=== PATIENT | female | born 1950 | race Caucasian/White ===

== ENCOUNTER 2017-09-10 12:13 | Emergency (ER) | payer MEDICARE, BC ==
[2017-09-10 12:15] VITALS: BP 119/52
[2017-09-10] MEDS ORDERED: Albuterol/Ipratropium 3.0-0.5 MG/3 ML Neb Soln NEB ONE (12:29)
[2017-09-10] MEDS ORDERED: Codeine/guaiFENesin 100-10 MG/5 ML Syrup 5 ML Cup PO ONE (12:30)
[2017-09-10] MEDS ORDERED: Ondansetron 4 MG Tab.DIS PO ONE (12:31)
--- NOTE | 2017-09-10 12:35 | EDM.PDOC ---
ED HPI GENERAL MEDICAL PROBLEM - General Chief Complaint: Respiratory Problem Stated Complaint: Cough, Wheezing Time Seen by Provider: 09/10/17 12:15 Source of Information: Reports: Patient History Limitations: Reports: No Limitations - History of Present Illness INITIAL COMMENTS - FREE TEXT/NARRATIVE: Patient complaining of increased coughing and wheezing since starting to develop "cold" symptoms yesterday. Has history of asthma/COPD (non-smoker) and has Symbicort and Ventolin inhalers at home. These are not helping her. She has a nebulizer machine at home as well as old albuterol neb solution that has . She did not try the medication. Complains of headache, mild sore throat, cough, runny nose, mild loose stools. Episode of post-tussive emesis this morning. No fevers/chills. No other complaints. - Related Data Allergies Allergy/AdvReac Type Severity Reaction Status Date / Time No Known Allergies Allergy Verified 09/10/17 12:15 Home Meds: Home Meds FLUoxetine HCl [Fluoxetine HCl] 40 mg PO DAILY 06/19/15 [History] Propranolol HCl [Propranolol] 60 mg PO DAILY 06/19/15 [History] QUEtiapine [SEROquel] 200 mg PO DAILY 06/19/15 [History] Albuterol Sulfate 2.5 mg IH ASDIRECTED PRN #1 box 09/10/17 [Rx] Albuterol [IJD: Ventolin HFA] 1 puff INH BID 09/10/17 [History] Budesonide/Formoterol Fumarate [Symbicort 80-4.5 Mcg Inhaler] 1 puff INH BID [History] Pantoprazole Sodium 40 mg PO DAILY 09/10/17 [History] Prednisone [IJD: predniSONE] 40 mg PO DAILY #5 tab 09/10/17 [Rx] traMADol [Ultram] 50 mg PO Q6H PRN #20 tablet 09/10/17 [Rx] Past Medical History - Past Health History Medical/Surgical History: Denies Medical/Surgical History Cardiovascular History: Reports: High Cholesterol, Hypertension Respiratory History: Reports: Asthma Gastrointestinal History: Reports: GERD Neurological History: Reports: TIA Psychiatric History: Reports: Anxiety, Depression Social & Family History - Tobacco Use Smoking Status *Q: Former Smoker Used Tobacco, but Quit: Yes Month Tobacco Last Used: 1989 Second Hand Smoke Exposure: No - Caffeine Use Caffeine Use: Reports: Coffee - Alcohol Use Days Per Week of Alcohol Use: 0 - Recreational Drug Use Recreational Drug Use: No ED ROS GENERAL - Review of Systems Review Of Systems: ROS reveals no pertinent complaints other than HPI. ED EXAM, GENERAL - Physical Exam Exam: See Below Exam Limited By: No Limitations General Appearance: Alert, WD/WN, No Apparent Distress Eye Exam: Bilateral Eye: EOMI, PERRL Ears: Normal External Exam, Normal Canal, Hearing Grossly Normal, Normal TMs Nose: Normal Inspection Throat/Mouth: Normal Inspection, Normal Lips, Normal Teeth, Normal Gums, Normal Oropharynx, Normal Voice, No Airway Compromise Head: Atraumatic, Normocephalic Neck: Normal Inspection, Supple, Non-Tender, Full Range of Motion. No: Lymphadenopathy (L), Lymphadenopathy (R) Respiratory/Chest: No Respiratory Distress, No Accessory Muscle Use, Wheezing ( scattered). No: Crackles, Rales, Rhonchi, Stridor Cardiovascular: Normal Peripheral Pulses, Regular Rate, Rhythm, No Murmur Peripheral Pulses: 2+: Radial (L), Radial (R) GI/Abdominal: Normal Bowel Sounds, Soft, Non-Tender, No Distention (Female) Exam: Deferred Rectal (Female) Exam: Deferred Back Exam: Normal Inspection. No: CVA Tenderness (L), CVA Tenderness (R), Muscle Spasm, Paraspinal Tenderness, Vertebral Tenderness Extremities: Normal Inspection, Normal Range of Motion, Non-Tender, Normal Capillary Refill Neurological: Alert, Oriented, CN II-XII Intact, Normal Cognition, Normal Gait, No Motor/Sensory Deficits Psychiatric: Normal Affect, Normal Mood Skin Exam: Warm, Dry, Intact, Normal Color, No Rash Lymphatic: No Adenopathy Course - Vital Signs Last Recorded V/S: Last Vital Signs Temp 37.2 C 09/10/17 12:14 Pulse 72 09/10/17 12:14 Resp 18 09/10/17 12:14 BP 119/52 L 09/10/17 12:14 Pulse Ox 95 09/10/17 12:14 - Orders/Labs/Meds Orders: Active Orders 24 hr Category Date Time Status RT Aerosol Therapy [RC] ASDIRECTED Care 09/10/17 12:29 Ordered Meds: Medications Discontinued Medications Generic Name Dose Route Start Last Admin Trade Name Freq PRN Reason Stop Dose Admin Albuterol/Ipratropium 3 ml 09/10/17 12:29 09/10/17 12:32 Duoneb 3.0-0.5 Mg/3 Ml NEB 09/10/17 12:30 3 ml ONETIME ONE Administration Guaifenesin/Codeine Phosphate 10 ml 09/10/17 12:30 Robitussin Ac PO 09/10/17 12:31 ONETIME ONE Ondansetron HCl 4 mg 09/10/17 12:31 Zofran Odt PO 09/10/17 12:32 ONETIME ONE - Re-Assessments/Exams Free Text/Narrative Re-Assessment/Exam: 09/10/17 12:38 Suspect acute viral infection with asthma exacerbation. Patient received neb as well as PO cough medication/nausea medication. Plan at this time is to refill her Albuterol nebulizer solution as well as place her on short course of steroids. She is to follow up as needed if symptoms worsen. Departure - Departure Time of Disposition: 13:00 Disposition: Home, Self-Care 01 Condition: Good Clinical Impression: Acute asthma, Viral illness - Discharge Information Prescriptions: Albuterol Sulfate 2.5 mg IH ASDIRECTED PRN #1 box PRN Reason: Shortness Of Breath Prednisone [IJD: predniSONE] 40 mg PO DAILY #5 tab traMADol [Ultram] 50 mg PO Q6H PRN #20 tablet PRN Reason: Pain Referrals: Catrachita Herman NP [Primary Care Provider] - Forms: ED Department Discharge Additional Instructions: Use albuterol in nebulizer instead of Ventolin inhaler for the next 5-7 days. Use one neb every 4-6 hours as needed for cough/shortness of breath. Recommend using the nebs 4 times a day minimum over the next 5 days to help with your symptoms. Use Prednisone today and the next 4 days. Continue Symbicort inhaler. Use Tramadol as needed for pain. OK to take Tylenol with the Tramadol. Follow up as needed if you have worsening symptoms/problems. - My Orders Last 24 Hours: My Active Orders 09/10/17 12:29 RT Aerosol Therapy [RC] ASDIRECTED - Assessment/Plan Last 24 Hours: My Active Orders 09/10/17 12:29 RT Aerosol Therapy [RC] ASDIRECTED
[2017-09-10] MEDS ORDERED: traMADol 50 MG Tab PO ONE (12:41)
== END 2017-09-10 12:55 | disposition home or self-care (01) ==
LOC: LL.ED 12:13
DX: J45.901 Unspecified asthma with (acute) exacerbation (principal); B34.9 Viral infection, unspecified; I10 Essential (primary) hypertension; E78.00 Pure hypercholesterolemia, unspecified; Z87.891 Personal history of nicotine dependence; F32.9 Major depressive disorder, single episode, unspecified
CPT/HCPCS: 94640; 99284; A9270

== ENCOUNTER 2019-04-19 11:47 | Day surgery (SDC) | payer MEDICARE, BC ==
[~2019-04-19 11:47] MED LIST: Propofol 200 MG/20 ML SDV ONE
[2019-04-19] MEDS ORDERED: Lactated Ringers 1,000 ML IV SCH (12:00)
[2019-04-19] MEDS ORDERED: Sodium Chloride 0.9% 10 ML Syringe FLUSH PRN (12:00)
--- NOTE | 2019-04-19 12:24 | PCM.HPR ---
H & P Addendum review - H & P Addendum Review Date of Original H & P: 03/30/19 Date Reviewed: 04/19/19 Time Reviewed: 12:23 Patient was Examined: No Changes
[2019-04-19] MEDS ORDERED: Propofol 200 MG/20 ML SDV ONE (12:26)
--- NOTE | 2019-04-19 12:50 | PCM.OPNOTE ---
- General Post-Op/Procedure Note Date of Surgery/Procedure: 04/19/19 Operative Procedure(s): Colonoscopy Findings: Normal Pre Op Diagnosis: Hx Polyps Post-Op Diagnosis: Same Anesthesia Technique: MAC Primary Surgeon: Tommy Diaz Complications: None Condition: Good
[2019-04-19 15:21] VITALS: BP 108/56; PULSE 55
--- NOTE | 2019-04-20 08:55 | OR ---
Date of Procedure: 04/19/2019 PREOPERATIVE DIAGNOSIS: History of colon polyps. POSTOPERATIVE DIAGNOSIS: Normal colonoscopy, status post diverticulitis, status post sigmoid colectomy. PROCEDURE: Colonoscopy. ANESTHESIA: IV sedation. DESCRIPTION OF PROCEDURE: The patient was brought to the procedure room where she was placed on her left side and IV sedation administered. Digital rectal exam was performed which was normal. Colonoscope was inserted and advanced to the level of the cecum without difficulty. Cecal position was confirmed by identifying the appendiceal lumen and ileocecal valve. Prep was good and surfaces were well visualized. Upon withdrawing the scope, the ascending, transverse, and descending colon were normal in appearance. The rectosigmoid anastomosis looked normal. I did not see any evidence of remaining diverticula. The rectum was normal and retroflexion was normal. Air was removed and the scope withdrawn. The patient tolerated the procedure well and returned to Recovery in stable condition. Recommend colonoscopy again in 5 years. STEPHANIE BOWERS MD /[id number]
== END 2019-04-19 14:14 | disposition home or self-care (01) ==
LOC: LL.SDS 11:47
PROVIDERS: ATTEND Surgery
DX: Z12.11 Encounter for screening for malignant neoplasm of colon (principal); K21.9 Gastro-esophageal reflux disease without esophagitis; I10 Essential (primary) hypertension; R23.3 Spontaneous ecchymoses; F31.30 Bipolar disorder, current episode depressed, mild or moderate severity, unspecified; E78.5 Hyperlipidemia, unspecified; F41.9 Anxiety disorder, unspecified; J44.9 Chronic obstructive pulmonary disease, unspecified; Z86.010 Personal history of colon polyps; Z98.84 Bariatric surgery status; Z79.82 Long term (current) use of aspirin; Z90.49 Acquired absence of other specified parts of digestive tract
CPT/HCPCS: G0121; J2704; J7120; 00812

== ENCOUNTER 2024-05-29 20:14 | Emergency (ER) | payer MEDICARE, BC ==
[2024-05-29] MEDS: Nitroglycerin 0.4 MG Tab.SL SL PRN (20:26)
[2024-05-29 20:33] LABS: BASOPHILS ABSOLUTE AUTO 0.01 K/uL (0.00-0.20); BASOPHILS PERCENT AUTO 0.2 % (0.0-2.0); HEMATOCRIT 37.1 % (34.0-46.0); HEMOGLOBIN 12.5 g/dL (11.7-15.5); LYMPHOCYTES ABSOLUTE AUTO 1.76 K/uL (0.50-3.50); LYMPHOCYTES PERCENT AUTO 26.5 % (10.0-50.0); MEAN CORPUSCULAR HEMOGLOBIN 30.6 pg (28.2-33.3); MEAN CORPUSCULAR HGB CONC 33.7 g/dL (31.7-36.0); MEAN CORPUSCULAR VOLUME 90.9 fL (84.0-98.0); MONOCYTES ABSOLUTE AUTO 0.73 K/uL (0.00-1.00); NEUTROPHILS ABSOLUTE AUTO 4.14 K/uL (1.40-7.00); NEUTROPHILS PERCENT AUTO 62.3 % (45.0-80.0); PLATELET COUNT,PLT 140 K/uL (150-350); RED BLOOD CELL COUNT 4.08 M/uL (3.77-5.09); RED CELL DISTRIBUTION WIDTH 13.4 % (11.2-14.1); WHITE BLOOD CELL COUNT,WBC 6.6 K/uL (4.0-10.2)
[2024-05-29] MEDS: fentaNYL 50 MCG/ML SDV IVPUSH ONE (20:40)
[2024-05-29] MEDS: LORazepam 2 MG/ML SDV IVPUSH ONE (20:44)
[2024-05-29] MEDS ORDERED: Naloxone 0.4 MG/ML SDV IVPUSH PRN (20:47)
[2024-05-29] MEDS: Aspirin 81 MG Tab.Chew PO ONE (20:47)
[2024-05-29 20:49] LABS: INR 1.1 (0.9-1.1); PROTHROMBIN TIME 10.5 SEC (9.0-11.1)
[2024-05-29] MEDS: Ondansetron 4 MG/2 ML SDV IVPUSH ONE (20:49)
[2024-05-29 21:00] LABS: ALBUMIN 3.5 g/dL (3.4-5.0); ANION GAP 8.2 meq/L (7-15); BILIRUBIN TOTAL 0.5 mg/dL (0.2-1.0); CALCIUM 8.6 mg/dL (8.5-10.1); CARBON DIOXIDE,CO2 27.8 mmol/L (21.0-32.0); CREATININE 1.08 mg/dL (0.51-1.17); EST CRCL DRUG DOSING (CG) 41.12 mL/min; MAGNESIUM 1.8 mg/dL (1.8-2.4); POTASSIUM,K 3.8 mmol/L (3.5-5.1); PROTEIN TOTAL,TP 6.7 g/dL (6.4-8.2)
[2024-05-29 21:21] VITALS: PULSE 54
[2024-05-29] MEDS: fentaNYL 50 MCG/ML SDV ONE (21:25)
[2024-05-29] MEDS: Ondansetron 4 MG/2 ML SDV ONE (21:25)
[2024-05-29] MEDS: Sodium Chloride 0.9% 10 ML Syringe FLUSH PRN (21:26)
[2024-05-29 21:38] VITALS: BP 144/63
== END 2024-05-29 21:50 | disposition home or self-care (01) ==
LOC: LL.ED 20:14
DX: R07.89 Other chest pain (principal); K21.9 Gastro-esophageal reflux disease without esophagitis; I10 Essential (primary) hypertension; Z79.899 Other long term (current) drug therapy
CPT/HCPCS: 36415; 71045; 80053; 83735; 83880; 84484; 85025; 85610; 93005; 93010; 96374; 96375; 99284; 99285-25; A9270-GY; J2060; J2405; J3010; J3490